=== PATIENT | female | born 2005 | race Caucasian/White ===

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

== ENCOUNTER → 2023-04-19 16:21 | Outpatient (CLI) | payer OTHER, SELFPAY ==
--- NOTE | 2023-04-19 | DI.RAD.S_ITS ---
PROCEDURE: XR CHEST 2V INDICATIONS: Wheezing TECHNIQUE: 2 views of the chest were acquired. COMPARISON: [facility], , CHEST 2 VIEW, 04/03/2008, 9:45. FINDINGS: Surgical changes and devices: None. Lungs and pleura: Lungs are clear. No pleural effusions or pneumothorax. Mediastinum: Mediastinal contours are normal. Heart size is normal. Bones and chest wall: No suspicious bony abnormalities. Soft tissues appear unremarkable. IMPRESSION: No evidence acute pulmonary process. Dictated by: Danilo Ceja M.D. on 04/19/2023 at 17:08 Approved by: Danilo Ceja M.D. on 04/19/2023 at 17:08
== END ==
PROVIDERS: PCP Family Medicine; Referring Provider Family Medicine; Visit Provider Family Medicine
DX: R06.2 Wheezing (principal)
CPT/HCPCS: 71046

== ENCOUNTER 2023-07-08 17:12 | Emergency (ER) | payer OTHER, SELFPAY ==
[2023-07-08 17:27] VITALS: BP 140/93; PULSE 80; RESP 20; TEMP 37.9; O2SAT 99; BMI 24.2
[2023-07-08] MEDS: diphenhydrAMINE 25 MG TABLET PO (18:09)
[2023-07-08] MEDS: predniSONE 20 MG TABLET 40 MG PO (18:09)
[2023-07-08] MEDS: ACETAMINOPHEN 325 MG TABLET 975 MG PO (18:25)
[2023-07-08 19:11] VITALS: BP 115/82; PULSE 70; RESP 16; O2SAT 99
--- NOTE | 2023-07-08 19:56 | PC.NURSE ---
Eating dinner. States she feels as if allergy symptoms have resolved. Easy work of breathing, pink/warm/dry w/o rash or lesion. Airway intact.
--- NOTE | 2023-07-08 20:07 | ED.ALLEREA ---
HPI - Allergic Reaction General Chief complaint: Allergic Reaction Stated complaint: reaction to allergy shot Time Seen by Provider: 07/08/23 18:03 Source: patient Mode of arrival: Ambulatory History of Present Illness HPI narrative: Patient 17-year-old female history of POTS syndrome, psoriasis, eczema presenting today with allergic reaction. She is getting allergy shots she got the last of this series which was a big dose. On the drive home she started noticing that her face was getting swollen puffy red her lips were swollen she had a rash on the back of her thighs which was pruritic. She says that her throat was itchy but not closing off. She took Zyrtec at home. She is now been given prednisone and Benadryl and symptoms have completely resolved. Mom showed me a picture of her face it is significantly better now. Related Data Allergies Allergy/AdvReac Type Severity Reaction Status Date / Time carrot Allergy Verified 07/08/23 17:32 Penicillins Allergy Verified 07/08/23 17:32 Review of Systems Review of Systems ROS Unobtainable: All systems reviewed & are unremarkable except as noted in HPI and below Patient History Medical History (Updated 07/08/23 @ 20:17 by Ngoc Ochoa DO) Menorrhagia Social History Smoking Status: Never smoker Smoking Status: Never smoker alcohol intake frequency: 0-2 drinks per day Substance Use Type: does not use Exam Initial Vital Signs Initial Vital Signs: Vital Signs Temperature 100.2 F H 07/08/23 17:27 Pulse Rate 80 07/08/23 17:27 Respiratory Rate 20 07/08/23 17:27 Blood Pressure 140/93 H 07/08/23 17:27 Pulse Oximetry 99 07/08/23 17:27 Oxygen Delivery Method Room Air 07/08/23 17:27 GENERAL: Alert pleasant well-appearing 17-year-old and in no acute distress. HEENT: Head atraumatic,EOMI, pupils reactive, face symmetric, moist mucous membranes CARDIOVASCULAR: Regular rate and rhythm without murmurs, rubs or gallops. RESPIRATORY: Breath sounds equal bilaterally, no wheezes rales or rhonchi. EXTREMITIES: Normal range of motion, no clubbing or edema. Neurovascularly intact NEUROLOGICAL: Alert and oriented x4. SKIN: Warm, dry, no laceration, no petechiae, no rashes or lesions. Course Orders Ordered: Discontinued Medications Acetaminophen (Acetaminophen 325 Mg Tablet) 975 mg PO NOW ONE Stop: 07/08/23 18:16 Last Admin: 07/08/23 18:25 Dose: 975 mg Documented By: TASHI Diphenhydramine HCl (Diphenhydramine 25 Mg Tablet) 25 mg PO NOW ONE Stop: 07/08/23 18:04 Last Admin: 07/08/23 18:09 Dose: 25 mg Documented By: TASHI Prednisone (Prednisone 20 Mg Tablet) 40 mg PO NOW ONE Stop: 07/08/23 18:04 Last Admin: 07/08/23 18:09 Dose: 40 mg Documented By: TASHI Vital Signs Vital signs: Vital Signs - 8 hr 07/08/23 20:23 Pulse Rate 70 Respiratory Rate 16 Blood Pressure 122/70 Pulse Oximetry 99 Oxygen Delivery Method Room Air MDM - Allergic Reaction MDM Narrative Medical decision making narrative: 17-year-old female presents today with allergic reaction. It resolved with p.o. meds. No evidence of anaphylaxis. She is already seeing urban sociologist. I do not think she needs to be continued on prednisone. Discharge Plan Departure Patient Disposition: Home Clinical Impression: Allergic reaction Instructions: DI for General Allergic Reactions Activity Restrictions/Additional Instructions: *You have been diagnosed with allergic reaction *What to do: At this time no need for EpiPen. Please discuss with your urban sociologist in regards to continuing *Continue to take medications as directed Benadryl 25-50 mg if having rash or itchiness Zyrtec once daily as needed *Follow up with your primary care provider in 2-3 days or call [phone] *Return to ER if you should have increased lip swelling tongue swelling difficulty breathing throat swelling or any new, worsening or concerning symptoms Referrals: Anshul Trevino MD [Primary Care Provider] - Stand Alone Forms: Patient Portal/API
[2023-07-08 20:23] VITALS: BP 122/70; PULSE 70; RESP 16; O2SAT 99
== END 2023-07-08 20:27 | disposition home or self-care (01) ==
PROVIDERS: Emergency Provider Emergency Medicine; PCP Family Medicine
DX: T78.40XA Allergy, unspecified, initial encounter (principal)
CPT/HCPCS: 99283

== ENCOUNTER → 2023-11-23 10:33 | Outpatient (CLI) | payer OTHER, SELFPAY ==
[2023-11-23 11:05] LABS: Add Manual Diff / Slide Review NO; Basophils Absolute Auto 0 /uL (0-100); Basophils Percent Auto 0.6 % (0-2); Eosinophils Absolute Auto 200 /uL (0-450); Eosinophils Percent Auto 3.1 % (2-4); Hematocrit 41.8 % (36-46); Hemoglobin 14.4 g/dL (12.0-16.0); Lymphocytes Absolute Auto 1700 /uL (1100-4500); Lymphocytes Percent Auto 33.8 % (25-40); Mean Corpuscular HGB Conc 34.4 % (30-36); Mean Corpuscular Hemoglobin 31.6 PG (26-34); Mean Corpuscular Volume 91.8 fL (80-100); Monocytes Absolute Auto 300 /uL (0-900); Monocytes Percent Auto 6.6 % (3-14); Neutrophils Absolute Auto 2800 /uL (1500-7000); Neutrophils Percent Auto 55.9 % (50-75); Platelet Count 287 X10^3/uL (150-400); Red Blood Cell Count 4.55 X10^6/uL (4.0-5.2); Red Cell Distribution Width 12.5 % (11.6-14.8); White Blood Cell Count 5.1 X10^3/uL (4.5-11.0)
[2023-11-23 12:24] LABS: Alanine Aminotransferase 19 IU/L (<35); Albumin 4.3 g/dL (3.5-5.0); Albumin Globulin Ratio 1.5 (1.0-2.8); Alkaline Phosphatase 56 U/L (38-126); Aspartate Aminotransferase 26 IU/L (14-36); BUN Creatinine Ratio 17.6 (6-22); Bilirubin Total 0.8 mg/dL (0.2-1.3); Blood Urea Nitrogen 12 mg/dL (7-17); Calcium 9.7 mg/dL (8.4-10.2); Carbon Dioxide 25 mmol/L (22-32); Chloride 102 mmol/L (98-107); Estimated Glomerular Filt Rate > 60 mL/min (>60); Globulin 2.8 g/dL (1.7-4.1); Glucose 108 mg/dL (70-100); HEMOLYSIS < 15 (0-50); Potassium 4.3 mmol/L (3.4-5.1); Sodium 137 mmol/L (137-145); Total Protein 7.1 g/dL (6.3-8.2)
[2023-11-25 10:09] LABS: QuantiFERON Mitogen Value >10.00 IU/mL (.); QuantiFERON Nil Value 0.01 IU/mL (.); QuantiFERON TB Gold Plus Negative (Negative); QuantiFERON TB1 Ag Value 0.06 IU/mL (.); QuantiFERON TB2 Ag Value 0.05 IU/mL (.)
== END ==
PROVIDERS: PCP Family Medicine; Referring Provider Physician Assistant; Visit Provider Physician Assistant
DX: Z79.899 Other long term (current) drug therapy (principal)
CPT/HCPCS: 36415; 80053; 85025; 86480

== ENCOUNTER → 2025-08-27 17:14 | Outpatient (CLI) | payer OTHER, SELFPAY ==
--- NOTE | 2025-08-27 17:16 | DI.RAD.S_ITS ---
PROCEDURE: XR ANKLE RT MIN 3V INDICATIONS: r/o Fx TECHNIQUE: 3 views of the ankle were acquired. COMPARISON: [facility], , ANKLE 3 VIEWS RIGHT, 05/13/2016, 9:15. FINDINGS: Bones: No acute fractures or dislocations. Ankle mortise is normally aligned. No suspicious bony lesions. Soft tissues: No tibiotalar joint effusion. Achilles tendon appears normal. IMPRESSION: No acute osseous abnormality. If there is continued clinical concern or persistent symptoms, repeat radiographs or cross-sectional imaging (e.g. CT, MRI) may be helpful for further evaluation. Approved by: Jus Yates M.D. on 08/27/2025 at 18:04
== END ==
PROVIDERS: PCP Family Medicine; Referring Provider Chiropractor; Visit Provider Chiropractor
DX: S93.401A Sprain of unspecified ligament of right ankle, initial encounter (principal)
CPT/HCPCS: 73610